=== PATIENT | male | born 1955 | race Caucasian/White ===

== ENCOUNTER 2017-07-27 10:44 | Emergency (ER) | payer BC ==
[2017-07-27 11:09] VITALS: BP 93/65
--- NOTE | 2017-07-27 11:41 | UC ---
Shortness of Breath HPI - HPI Summary HPI Summary: COUGH AND CONGESTION STARTED AROUND [place]. SINCE THEN SYMPTOMS HAVE PROGRESSED AND NOW PT HAS SOB WITH EXERTION AND EXTREME FATIGUE. FEELS WEAK. PT DENIES CP. APPETITE HAS BEEN DECREASED. PT ADMITS TO NOT EATING MUCH RECENTLY BUT IS TRYING TO STAY HYDRATED. 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 PT REPORTS HE HAD AFIB IN THE PAST BUT "NOT FOR YEARS". - History of Current Complaint Chief Complaint: UCRespiratory Stated Complaint: COUGH,CONGESTED Time Seen by Provider: 07/27/17 11:18 Hx Obtained From: Patient, Family/Senior Analyst Programmer - SON Onset/Duration: Gradual Onset, Lasting Days, Still Present Timing: Constant Current Severity: Moderate Dyspnea At: Exertion Aggrevating Factors: Movement Alleviating Factors: Nothing - Allergy/Home Medications Allergies/Adverse Reactions: Allergies Allergy/AdvReac Type Severity Reaction Status Date / Time Tramadol Allergy Severe Unknown Verified 07/27/17 11:03 Reaction Details Acetaminophen Allergy Unknown Unknown Verified 07/27/17 11:03 Reaction Details Propoxyphene Allergy Unknown Unknown Verified 07/27/17 11:03 [From Darvocet-N] Reaction Details Codeine AdvReac Intermediate Abdominal Verified 07/27/17 11:03 Pain all myacins Allergy Unknown Uncoded 07/27/17 11:03 Reaction Details Home Medications: Home Medications Brimonidine Tartrate 07/27/17 [History] PMH/Surg Hx/FS Hx/Imm Hx - Additional Past Medical History Additional PMH: PE/DVT ON COUMADIN Other History Of: Anticoagulant Therapy - Surgical History Surgical History: Yes Surgery Procedure, Year, and Place: 07/2013 MITRAL VALVE REPAIR [place]. 1999 [place] fx [place]; [facility] [place] bilat knee surgery; [facility] [place]. 2005 right elbow surgery, [facility] [place]. 1963 BILATERAL INGUINAL hernia repair - Family History Known Family History: Negative: Cardiac Disease - Social History Alcohol Use: None Substance Use Type: None Substance Use Comment - Amount & Last Used: Haven't had anything to drink in 4 years Smoking Status (MU): Never Smoked Tobacco Have You Smoked in the Last Year: No - Immunization History Most Recent Influenza Vaccination: never Most Recent Tetanus Shot: 2014 Most Recent Pneumonia Vaccination: unknown Review of Systems Constitutional: Fatigue Respiratory: Shortness Of Breath, Cough Cardiovascular: Negative Gastrointestinal: Negative All Other Systems Reviewed And Are Negative: Yes Physical Exam Triage Information Reviewed: Yes Appearance: No Pain Distress, Ill-Appearing - MODERATELY ILL. PALE. MILD SKIN TENTING AND PASTY MUCOUS MEMBRANES Vital Signs: Initial Vital Signs Temp 97.7 F 07/27/17 11:04 Pulse 95 07/27/17 11:04 Resp 16 07/27/17 11:04 BP 93/65 07/27/17 11:04 Pulse Ox 94 07/27/17 11:04 Eyes: Positive: Conjunctiva Clear ENT: Positive: Hearing grossly normal Neck: Positive: Supple, Nontender, No Lymphadenopathy Respiratory Exam: Normal Cardiovascular: Positive: Tachycardia Abdomen Description: Positive: Soft Musculoskeletal: Positive: No Edema Neurological: Positive: Alert Psychological: Positive: Normal Response To Family, Age Appropriate Behavior Skin: Negative: rashes Diagnostics - EKG Cardiac Rate: NL Cardiac Rhythm: AFib: Old - 89 BPM, RBBB, Q WAVES INF LEADS Shortness of Breath Dx - Course Course Of Treatment: TO [facility] [place] BY AMBULANCE - Differential Dx/Diagnosis Provider Diagnoses: AFIB, STERN - Physician Notification/Consults Discussed Patient Care With: Tierra Degroot - TO [facility] [place] [facility] BY AMBULANCE Time Discussed With Above Provider: 11:40 Instructed by Provider To: MD Will See In ED Discharge - Discharge Plan Condition: Stable Disposition: TRANS HIGHER LVL OF CARE FAC Patient Education Materials: A-fib (Atrial Fibrillation) (ED), Dyspnea (ED) Referrals: Michelle Freire MD [Primary Care Provider] -
== END 2017-07-27 11:59 | disposition short-term general hospital (02) ==
LOC: UCEAST 10:44
DX: I48.91 Unspecified atrial fibrillation (principal); R06.00 Dyspnea, unspecified; Z86.711 Personal history of pulmonary embolism; Z86.718 Personal history of other venous thrombosis and embolism; Z79.01 Long term (current) use of anticoagulants
CPT/HCPCS: 93005; 99213; G0463

== ENCOUNTER 2017-07-27 12:10 | Observation (INO) | payer BC ==
[2017-07-27 12:54] LABS: INR 2.32 (0.77-1.02)
[2017-07-27 13:01] LABS: ABS Basophils 0 10^3/ul (0-0.2); ABS Eosinophils 0 10^3/ul (0-0.6); ABS Lymphocytes 0.5 10^3/ul (1.0-4.8); ABS Monocytes 0.8 10^3/ul (0-0.8); ABS Neutrophils 4.8 10^3/ul (1.5-7.7); ABS Nucleated RBC 0 10^3/ul; Eosinophil % 0 % (0-6); Hematocrit 41 % (42-52); Hemoglobin 14.6 g/dl (14.0-18.0); Lymphocyte % 8.4 % (25-47); Mean Corpuscular HGB Conc 35 g/dl (31-36); Mean Corpuscular Hemoglobin 32 pg (27-31); Mean Corpuscular Volume 90 fL (80-94); Mean Platelet Volume 10 um3 (7.4-10.4); Nucleated Red Blood Cells % 0; Platelet Count 86 10^3/ul (150-450); Red Blood Count 4.61 10^6/ul (4.0-5.4); Red Cell Distribution Width 15 % (10.5-15); White Blood Count 6.1 10^3/ul (3.5-10.8)
[2017-07-27] MEDS ORDERED: Oseltamivir CAP* 75 MG PO ONE (13:05)
[2017-07-27 13:37] LABS: EGFR Non-African American 82.1 (>60)
[2017-07-27] MEDS ORDERED: NS 0.9% 1000 ML* 1,000 ML IV ONE (13:57)
[2017-07-27 14:02] LABS: Urine Appearance Cloudy; Urine Blood 2+ (Negative); Urine Color Amber; Urine Ketones Negative (Negative); Urine Protein 1+(30 mg/dL) (Negative); Urine Specific Gravity 1.028 (1.010-1.030); Urine Urobilinogen Negative (Negative)
--- NOTE | 2017-07-27 14:20 | RAD ---
HISTORY: Atrial fibrillation, cough COMPARISONS: None VIEWS: 4: Frontal dual-energy and lateral views of the chest. FINDINGS: CARDIOMEDIASTINAL SILHOUETTE: The cardiomediastinal silhouette is normal. Prosthesis is noted. MITRA: The mitra are normal. PLEURA: The costophrenic angles are sharp. No pleural abnormalities are noted. LUNG PARENCHYMA: There is hyperinflation with flattening of the diaphragm and expansion of the AP diameter of the chest. ABDOMEN: The upper abdomen is clear. There is no subphrenic gas. BONES AND SOFT TISSUES: The patient is status post median sternotomy. OTHER: None. IMPRESSION: NO ACTIVE CARDIOPULMONARY DISEASE.
--- NOTE | 2017-07-27 17:00 | ED ---
Max Barbosa Tecjoon scribed for Justin Middleton MD on 07/27/17 at 1253 . Complex/Multi-Sys Presentation - HPI Summary HPI Summary: This patient is a 61 year old BIBA to [facility] with a chief complaint of general weakness since 8 days ago. Patient states that he has had a chest cold for about a week, with increasing weakness. Patient also exhibits afib, which he states is recent and that he hasnt had afib for several years. Patient was referred from Urgent Care. Symptoms aggravated by nothing. Symptoms alleviated by nothing. Patient additionally reports cough, rhinorrhea, lack of appetite. Patient denies diarrhea, vomiting. Patient states his grandson was dx with bacterial pneumonia during . - History Of Current Complaint Chief Complaint: EDDysrhythmPalp Time Seen by Provider: 07/27/17 12:33 Hx Obtained From: Patient Onset/Duration: Gradual Onset, Lasting Days - 8, Still Present Timing: Constant Severity Currently: Moderate Aggravating Factor(s): nothing Alleviating Factor(s): nothing Associated Signs And Symptoms: Positive: Other - cough, rhinorrhea, lack of appetite. Negative: Vomiting, Diarrhea - Allergies/Home Medications Allergies/Adverse Reactions: Allergies Allergy/AdvReac Type Severity Reaction Status Date / Time Tramadol Allergy Severe Unknown Verified 07/27/17 11:03 Reaction Details Acetaminophen Allergy Unknown Unknown Verified 07/27/17 11:03 Reaction Details Propoxyphene Allergy Unknown Unknown Verified 07/27/17 11:03 [From Darelpidio-N] Reaction Details Codeine AdvReac Intermediate Abdominal Verified 07/27/17 11:03 Pain all myacins Allergy Unknown Uncoded 07/27/17 11:03 Reaction Details Home Medications: Home Medications Digoxin TAB* [Lanoxin TAB*] 0.125 mg PO BID 07/27/17 [History Confirmed 07/27/17 ] Diltiazem CD CAP* [Cardizem CD CAP*] 120 mg PO DAILY 07/27/17 [History Confirmed 07/27/17] PMH/Surg Hx/FS Hx/Imm Hx Previously Healthy: No Endocrine/Hematology History: Reports: Hx Anticoagulant Therapy, Hx Blood Transfusions, 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 Denies: Hx Blood Disorders, Hx Bone Marrow Disease, Hx Diabetes, Hx Systemic Lupus Erythematosus, Hx Sickle Cell Disease, Hx Thyroid Disease, Hx Unexplained Bleeding, Other Endocrine/Hematological Disorders Cardiovascular History: Reports: Hx Deep Vein Thrombosis, Hx Embolism, Hx Syncope - last , "may have been due to A-Fib", Hx Valvular Heart Disease Denies: Hx Aneurysm, Hx Angina, Hx Angioplasty, Hx Auto Implanted Cardiovert Defib, Hx Cardiac Arrest, Hx Cardiomegaly, Hx Congenital Heart Disease, Hx Congestive Heart Failure, Hx Coronary Artery Disease, Hx Hypercholesterolemia, Hx Hypotension, Hx Hypertension, Hx Pacemaker/ICD, Hx Peripheral Vascular Disease, Hx Rheumatic Fever, Other Cardiovascular Problems/Disorders Respiratory History: Reports: Hx Pulmonary Embolism, Other Respiratory Problems/ Disorders - DVT/PE IN 2013 OR 2014 PER PT. Denies: Hx Asthma, Hx Chronic Bronchitis, Hx Chronic Obstructive Pulmonary Disease (COPD), Hx Cystic Fibrosis, Hx Lung Cancer, Hx Pleural Effusion, Hx Pneumonia, Hx Pulmonary Edema, Hx Seasonal Allergies, Hx Sleep Apnea GI History: Denies: Hx Cirrhosis, Hx Crohn's Disease, Hx Diverticulosis, Hx Gall Bladder Disease, Hx Gastroesophageal Reflux Disease, Hx Gastrointestinal Bleed, Hx Hiatal Hernia, Hx Irritable Bowel, Hx Jaundice, Hx Obstructive Bowel, Hx Ileostomy, Hx Pyloric Stenosis, Hx Ulcer, Other GI Disorders History: Denies: Hx Acute Renal Failure, Hx Benign Prostatic Hyperplasia, Hx Dialysis , Hx Kidney Infection, Hx Kidney Stones, Other Problems/Disorders Musculoskeletal History: Reports: Hx Arthritis - toes and fingers, HIPS. KNEES, Hx Back Problems Denies: Hx Bursitis, Hx Congenital Bone Abnormalities, Hx Fibromyalgia, Hx Gout, Hx Orthopedic Injury, Hx Osteoporosis, Hx Scoliosis, Hx Tendonitis, Other Musculoskeletal History Sensory History: Reports: Hx Contacts or Glasses, Hx Hearing Aid, Hx Hearing Problem Denies: Hx Cataracts, Hx Eye Injury, Hx Eye Prosthesis, Hx Glaucoma, Hx Legally Blind, Hx Macular Degeneration, Hx Vision Problem, Hx Deafness, Other Sensory Impairments Opthamlomology History: Reports: Hx Contacts or Glasses Denies: Hx Cataracts, Hx Eye Injury, Hx Eye Prosthesis, Hx Glaucoma, Hx Legally Blind, Hx Macular Degeneration, Hx Vision Problem, Other Sensory Impairments Neurological History: Denies: Hx Dementia, Hx Developmental Delay, Hx Headaches, Hx Migraine, Hx Nerve Disease, Hx Seizures, Hx Spinal Cord Injury, Hx Transient Ischemic Attacks (TIA), Other Neuro Impairments/Disorders Psychiatric History: Reports: Hx Anxiety - HAS PRN MEDS, Hx Depression Denies: Hx Attention Deficit Hyperactivity Disorder, Hx Eating Disorder, Hx Panic Disorder, Hx Post Traumatic Stress Disorder, Hx Inpatient Treatment, Hx Community Mental Health Tx, Hx Schizophrenia, Hx Bipolar Disorder, Hx Suicide Attempt, Hx of Violent Episodes Against Others, Hx Substance Abuse, Other Psychiatric Issues/Disorders - Surgical History Surgery Procedure, Year, and Place: 07/2013 MITRAL VALVE REPAIR [place]. 2000 left wrist fx repair; [facility] [place]. 2005 bilat knee surgery; [facility] [place]. 2005 right elbow surgery, [facility] [place]. 1963 BILATERAL INGUINAL hernia repair Hx Anesthesia Reactions: Yes - YOUNG CHILD, VIOLENTLY ILL Infectious Disease History: No Infectious Disease History: Denies: Hx Clostridium Difficile, Hx Hepatitis, Hx Human Immunodeficiency Virus (HIV), Hx of Known/Suspected MRSA, Hx Shingles, Hx Tuberculosis, Hx Known/ Suspected VRE, Hx Known/Suspected VRSA, History Other Infectious Disease, Traveled Outside the [place] in Last 30 Days - Family History Known Family History: Positive: Cardiac Disease - Social History Occupation: Employed Full-time Alcohol Use: None Hx Substance Use: No Substance Use Type: Reports: None Substance Use Comment - Amount & Last Used: Haven't had anything to drink in 4 years Hx Tobacco Use: No Smoking Status (MU): Never Smoked Tobacco Have You Smoked in the Last Year: No Review of Systems Positive: Other - lack of appetite. Negative: Fever Positive: Nasal Discharge Positive: Cough Negative: Vomiting, Diarrhea Positive: Weakness All Other Systems Reviewed And Are Negative: Yes Physical Exam Triage Information Reviewed: Yes Vital Signs On Initial Exam: Initial Vitals Temp Pulse Resp BP Pulse Ox 99.1 F 100 19 107/79 94 07/27/17 12:17 07/27/17 12:17 07/27/17 12:17 07/27/17 12:17 07/27/17 12:17 Vital Signs Reviewed: Yes Appearance: Positive: Well-Appearing, No Pain Distress Skin: Positive: Warm Head/Face: Positive: Normal Head/Face Inspection Eyes: Positive: EOMI ENT: Positive: Nasal congestion Neck: Positive: Nontender Respiratory/Lung Sounds: Positive: Clear to Auscultation, Breath Sounds Present Cardiovascular: Positive: RRR. Negative: Murmur Abdomen Description: Positive: Nontender Musculoskeletal: Positive: Strength/ROM Intact Neurological: Positive: Sensory/Motor Intact, Alert, Oriented to Person Place, Time, CN Intact II-III Psychiatric: Positive: Normal - [place] Coma Scale Best Eye Response: 4 - Spontaneous Best Motor Response: 6 - Obeys Commands Best Verbal Response: 5 - Oriented Coma Scale Total: 15 Diagnostics - Vital Signs Vital Signs Temp Pulse Resp BP Pulse Ox 07/27/17 12:19 18 107/79 07/27/17 12:17 99.1 F 100 19 107/79 94 - Laboratory Lab Results: Lab Results 07/27/17 07/27/17 07/27/17 Range/Units 11:45 11:45 11:45 WBC 6.1 (3.5-10.8) 10^3/ul RBC 4.61 (4.0-5.4) 10^6/ul Hgb 14.6 (14.0-18.0) g/dl Hct 41 L (42-52) % MCV 90 (80-94) fL MCH 32 H (27-31) pg MCHC 35 (31-36) g/dl RDW 15 (10.5-15) % Plt Count 86 L (150-450) 10^3/ul MPV 10 (7.4-10.4) um3 Neut % (Auto) 78.6 (38-83) % Lymph % (Auto) 8.4 L (25-47) % [place] % (Auto) 12.8 H (1-9) % Eos % (Auto) 0 (0-6) % Baso % (Auto) 0.2 (0-2) % Absolute Neuts (auto) 4.8 (1.5-7.7) 10^3/ul Absolute Lymphs (auto) 0.5 L (1.0-4.8) 10^3/ul Absolute Monos (auto) 0.8 (0-0.8) 10^3/ul Absolute Eos (auto) 0 (0-0.6) 10^3/ul Absolute Basos (auto) 0 (0-0.2) 10^3/ul Absolute Nucleated RBC 0 10^3/ul Nucleated RBC % 0 Hem Pathologist Commnt Pending INR (Anticoag Therapy) (0.77-1.02) Sodium 131 L (133-145) mmol/L Potassium 3.7 (3.5-5.0) mmol/L Chloride 99 L (101-111) mmol/L Carbon Dioxide 24 (22-32) mmol/L Anion Gap 8 (2-11) mmol/L BUN 28 H (6-24) mg/dL Creatinine 0.93 (0.67-1.17) mg/dL Est GFR ( Amer) 105.5 (>60) Est GFR (Non-Af Amer) 82.1 (>60) BUN/Creatinine Ratio 30.1 H (8-20) Glucose 199 H (70-100) mg/dL Lactic Acid (0.5-2.0) mmol/L Calcium 8.6 (8.6-10.3) mg/dL Magnesium 2.0 (1.9-2.7) mg/dL Total Bilirubin 1.70 H (0.2-1.0) mg/dL AST 37 (13-39) U/L ALT 18 (7-52) U/L Alkaline Phosphatase 57 (34-104) U/L Total Creatine Kinase 261 H (10-223) U/L Troponin I 0.01 (<0.04) ng/mL B-Natriuretic Peptide 123 H ( - 100) pg/mL Total Protein 5.8 L (6.4-8.9) g/dL Albumin 3.6 (3.2-5.2) g/dL Globulin 2.2 (2-4) g/dL Albumin/Globulin Ratio 1.6 (1-3) Urine Color Urine Appearance Urine pH (5-9) Ur Specific Volcano (1.010-1.030) Urine Protein (Negative) Urine Ketones (Negative) Urine Blood (Negative) Urine Nitrate (Negative) Urine Bilirubin (Negative) Urine Urobilinogen (Negative) Ur Leukocyte Esterase (Negative) Urine WBC (Auto) (Absent) Urine RBC (Auto) (Absent) Urine Bacteria (Absent) Urine Glucose (Negative) Digoxin 1.0 (0.8-2.0) ng/ml Influenza A (Rapid) (Negative) Influenza B (Rapid) (Negative) 07/27/17 07/27/17 07/27/17 Range/Units 11:45 11:45 12:44 WBC (3.5-10.8) 10^3/ul RBC (4.0-5.4) 10^6/ul Hgb (14.0-18.0) g/dl Hct (42-52) % MCV (80-94) fL MCH (27-31) pg MCHC (31-36) g/dl RDW (10.5-15) % Plt Count (150-450) 10^3/ul MPV (7.4-10.4) um3 Neut % (Auto) (38-83) % Lymph % (Auto) (25-47) % [place] % (Auto) (1-9) % Eos % (Auto) (0-6) % Baso % (Auto) (0-2) % Absolute Neuts (auto) (1.5-7.7) 10^3/ul Absolute Lymphs (auto) (1.0-4.8) 10^3/ul Absolute Monos (auto) (0-0.8) 10^3/ul Absolute Eos (auto) (0-0.6) 10^3/ul Absolute Basos (auto) (0-0.2) 10^3/ul Absolute Nucleated RBC 10^3/ul Nucleated RBC % Hem Pathologist Commnt INR (Anticoag Therapy) 2.32 H (0.77-1.02) Sodium (133-145) mmol/L Potassium (3.5-5.0) mmol/L Chloride (101-111) mmol/L Carbon Dioxide (22-32) mmol/L Anion Gap (2-11) mmol/L BUN (6-24) mg/dL Creatinine (0.67-1.17) mg/dL Est GFR ( Amer) (>60) Est GFR (Non-Af Amer) (>60) BUN/Creatinine Ratio (8-20) Glucose (70-100) mg/dL Lactic Acid 1.6 (0.5-2.0) mmol/L Calcium (8.6-10.3) mg/dL Magnesium (1.9-2.7) mg/dL Total Bilirubin (0.2-1.0) mg/dL AST (13-39) U/L ALT (7-52) U/L Alkaline Phosphatase (34-104) U/L Total Creatine Kinase (10-223) U/L Troponin I (<0.04) ng/mL B-Natriuretic Peptide ( - 100) pg/mL Total Protein (6.4-8.9) g/dL Albumin (3.2-5.2) g/dL Globulin (2-4) g/dL Albumin/Globulin Ratio (1-3) Urine Color Urine Appearance Urine pH (5-9) Ur Specific Volcano (1.010-1.030) Urine Protein (Negative) Urine Ketones (Negative) Urine Blood (Negative) Urine Nitrate (Negative) Urine Bilirubin (Negative) Urine Urobilinogen (Negative) Ur Leukocyte Esterase (Negative) Urine WBC (Auto) (Absent) Urine RBC (Auto) (Absent) Urine Bacteria (Absent) Urine Glucose (Negative) Digoxin (0.8-2.0) ng/ml Influenza A (Rapid) Positive H (Negative) Influenza B (Rapid) Negative (Negative) 07/27/17 Range/Units 13:30 WBC (3.5-10.8) 10^3/ul RBC (4.0-5.4) 10^6/ul Hgb (14.0-18.0) g/dl Hct (42-52) % MCV (80-94) fL MCH (27-31) pg MCHC (31-36) g/dl RDW (10.5-15) % Plt Count (150-450) 10^3/ul MPV (7.4-10.4) um3 Neut % (Auto) (38-83) % Lymph % (Auto) (25-47) % [place] % (Auto) (1-9) % Eos % (Auto) (0-6) % Baso % (Auto) (0-2) % Absolute Neuts (auto) (1.5-7.7) 10^3/ul Absolute Lymphs (auto) (1.0-4.8) 10^3/ul Absolute Monos (auto) (0-0.8) 10^3/ul Absolute Eos (auto) (0-0.6) 10^3/ul Absolute Basos (auto) (0-0.2) 10^3/ul Absolute Nucleated RBC 10^3/ul Nucleated RBC % Hem Pathologist Commnt INR (Anticoag Therapy) (0.77-1.02) Sodium (133-145) mmol/L Potassium (3.5-5.0) mmol/L Chloride (101-111) mmol/L Carbon Dioxide (22-32) mmol/L Anion Gap (2-11) mmol/L BUN (6-24) mg/dL Creatinine (0.67-1.17) mg/dL Est GFR ( Amer) (>60) Est GFR (Non-Af Amer) (>60) BUN/Creatinine Ratio (8-20) Glucose (70-100) mg/dL Lactic Acid (0.5-2.0) mmol/L Calcium (8.6-10.3) mg/dL Magnesium (1.9-2.7) mg/dL Total Bilirubin (0.2-1.0) mg/dL AST (13-39) U/L ALT (7-52) U/L Alkaline Phosphatase (34-104) U/L Total Creatine Kinase (10-223) U/L Troponin I (<0.04) ng/mL B-Natriuretic Peptide ( - 100) pg/mL Total Protein (6.4-8.9) g/dL Albumin (3.2-5.2) g/dL Globulin (2-4) g/dL Albumin/Globulin Ratio (1-3) Urine Color Joan Urine Appearance Cloudy Urine pH 5.0 (5-9) Ur Specific [place] 1.028 (1.010-1.030) Urine Protein 1+(30 mg/dl) H (Negative) Urine Ketones Negative (Negative) Urine Blood 2+ H (Negative) Urine Nitrate Negative (Negative) Urine Bilirubin Negative (Negative) Urine Urobilinogen Negative (Negative) Ur Leukocyte Esterase Negative (Negative) Urine WBC (Auto) Trace(0-5/hpf) (Absent) Urine RBC (Auto) 2+(6-10/hpf) H (Absent) Urine Bacteria Absent (Absent) Urine Glucose Negative (Negative) Digoxin (0.8-2.0) ng/ml Influenza A (Rapid) (Negative) Influenza B (Rapid) (Negative) Result Diagrams: 07/27/17 11:45 07/27/17 11:45 Lab Statement: Any lab studies that have been ordered have been reviewed, and results considered in the medical decision making process. - Radiology CXR Xray Interpretation: No Acute Changes - IMPRESSION: NO ACTIVE CARDIOPULMONARY DISEASE. ED physician has reviewed this radiology report. Radiology Interpretation Completed By: Radiologist - EKG 1219 Cardiac Rate: NL EKG Rhythm: Atrial Fibrillation - vent rate 97 BPM EKG Interpretation: A fib with vent rate 97 BPM, RBBB. No STEMI. 1504 Cardiac Rate: NL EKG Rhythm: Atrial Fibrillation - Vent rate 89 BPM EKG Interpretation: A fib with vent rate 89 BPM, RBBB. No STEMI. Complex Multi-Symp Course/Dx Course Of Treatment: This patient is a 61 year old BIBA to [facility] with a chief complaint of general weakness since 8 days ago. Patient states that he has had a chest cold for about a week, with increasing weakness. Patient also exhibits afib, which he states is recent and that he hasnt had afib for several years. Patient was referred from Urgent Care. Symptoms aggravated by nothing. Symptoms alleviated by nothing. Patient additionally reports cough, rhinorrhea, lack of appetite. Patient denies diarrhea, vomiting. Patient states his grandson was dx with bacterial pneumonia during . An EKG, taken 1219, reveals A fib with vent rate 97 BPM, RBBB. No STEMI. An EKG, taken 1504, reveals A fib with vent rate 89 BPM, RBBB. No STEMI. CXR reveals, per radiologist, IMPRESSION: NO ACTIVE CARDIOPULMONARY DISEASE. ED physician has reviewed this radiology report. Bloodwork Obtained. Urinalysis Obtained. In the ED course the patient was given Tamiflu. 61 yr old male with influenza A, in Afib with a history of such and therpeutic on coumadin, also has some dehydration with elevation of BUN. Have discussed with hospitalist and consult cardiology. The patient refuses to take the Tamiflu. He states he does not want it and does not feel it will help him. He preferes just symptomatic treatment. Dr Scott recommends OBV admission with cardioversion tomorrow if he does not spontaneously convert. - Diagnoses Provider Diagnoses: Influenza A, Dehydration, Atrial fibrillation Discharge - Discharge Plan Condition: Good Disposition: ADMITTED TO [facility] Referrals: Konrad Scott MD [Primary Care Provider] - The documentation as recorded by the Max vieira Tecjoon accurately reflects the service I personally performed and the decisions made by me, Justin Middleton MD.
[2017-07-27] MEDS ORDERED: Acetaminophen TAB* 325 MG PO PRN (17:13)
[2017-07-27] MEDS: NS 0.9% 1000 ML* 1,000 ML IV SCH (20:46)
[2017-07-27] MEDS: Digoxin TAB* 0.125 MG PO SCH (20:50)
[2017-07-27] MEDS ORDERED: Diltiazem CD CAP* 120 MG PO SCH (21:00)
--- NOTE | 2017-07-27 21:19 | HP ---
CC: Dr. Freire; Dr. Scott * HISTORY AND PHYSICAL: DATE OF ADMISSION: 07/27/17 PRIMARY CARE PROVIDER: Dr. Freire. SPACE CONTROLLER: Dr. Scott. CHIEF COMPLAINT: Fever, cough, not feeling well. HISTORY OF PRESENT ILLNESS: Sudarshan Childers is a 61-year-old male who has a history of atrial fibrillation, which as the patient stated was paroxysmal, but as per his classification and treatment director's note is persistent. The patient stated that he had been having problems with not feeling well, poor appetite, intermittent fevers and cough as well as body aches for the past 4 days. He has not been eating well and he stated that he could have missed some of the doses of his medications. The patient was noted to have serology positive for influenza A. He also is in atrial fibrillation with heart rate below 100. The patient was also stated that he had not been in atrial fibrillation for "years now." Once again, he was in his atrial fibrillation in June of 2017 when seen by his primary classification and treatment director, Dr. Scott. The patient is going to be placed in overnight observation with the diagnosis of influenza. PAST MEDICAL HISTORY: 1. History of persistent atrial fibrillation. 2. History of sensory neuropathy. 3. History of DVT. 4. History of rheumatic disease of tricuspid valve. 5. History of mitral valve regurgitation, status post repair at [facility] in July of 2013. The patient had a Maze procedure during the mitral valve repair because of his atrial fibrillation. 6. History of attended cardioversion x3 and unsuccessful. 7. Mildly reduced EF of 45% to 50%. 8. History of cardiac catheterization that was "normal" in 2013. 9. History of mild thrombocytopenia. ALLERGIES: Include TRAMADOL, ACETAMINOPHEN, DARVOCET, CODEINE, and ERYTHROMYCINS. The patient stated that he cannot take acetaminophen because " Dr. Scott told me not to." He also stated that he was told not to take ibuprofen due to being on Coumadin. CURRENT MEDICATIONS: Includes: 1. Coumadin 5 mg daily. 2. Digoxin 0.125 mg b.i.d. 3. Brimonidine eye drops 2 drops both eyes at bedtime. 4. Cardizem CD 120 mg nightly. FAMILY HISTORY: Positive for father with heart disease and sister with PE. SOCIAL HISTORY: The patient denies tobacco, alcohol, or drug use. His son, Gerson Childers is his healthcare proxy. He is currently single, lives by himself. 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 REVIEW OF SYSTEMS: Please see history of present illness. The patient stated that "everything hurts." He has no appetite, but denies any nausea, vomiting, abdominal pain, or diarrhea. He denies any chest pain or shortness of breath. He states that he had been coughing and the cough had been nonproductive. His highest fever was 102 degrees and it was 2 days ago. All the remaining 12 systems were reviewed with the patient and were otherwise negative. PHYSICAL EXAMINATION GENERAL: The patient is a very pleasant 61-year-old male, who is in no acute distress. Alert, awake, and oriented x3. VITAL SIGNS: Blood pressure of 105/58, heart rate of 92 and irregularly irregular, respiratory rate 16, oxygen saturation 94% on room air, temperature of 99.8. HEENT: Head: Atraumatic and normocephalic. Eyes: Pupils are equal and reactive to light and accommodation. Oropharynx clear. Mucosa moist. NECK: Supple. No JVD. No bruits bilaterally. RESPIRATORY: Clear to auscultation bilaterally. CARDIOVASCULAR: Irregularly irregular rhythm. No murmur. ABDOMEN: Soft, nontender. Bowel sounds present in all 4 quadrants. EXTREMITIES: There is no edema. Pulses are +2 bilaterally. There is no clubbing or cyanosis. SKIN: On evaluation of the skin, no ecchymotic areas or rashes noted. NEURO EVALUATION: Speech clear. Cranial nerves II through XII grossly intact. Motor strength is 5/5 bilaterally. PSYCHIATRIC EVALUATION: Oriented x3 with no evidence of anxiety or depression. DIAGNOSTIC STUDIES/LAB DATA: White blood cell count of 6.1, hemoglobin of 14.6 , hematocrit of 41, and platelets of 86. Sodium of 131, potassium 3.7, chloride 99, carbon dioxide 24, BUN 28, creatinine 0.93. Liver function tests were unremarkable. Bilirubin 1.7. Total CPK mildly elevated at 261, but troponin was 0.01. Brain natriuretic peptide was 123. Digoxin level was 1.0. Urinalysis was positive for trace protein and trace blood and +2 rbc's. Serology was positive for influenza A. The patient's portable chest x-ray, impression: "No active cardiopulmonary disease." The patient's EKG show an atrial fibrillation with 189 beats per minute with right bundle-branch block. ASSESSMENT AND PLAN: 1. Sudarshan Childers is a 61-year-old male with history of persistent atrial fibrillation, of which he was not aware of. The patient stated that he thought that he had paroxysmal atrial fibrillation. He comes in with symptoms of flu, having influenza positive serology. Interestingly enough, the patient is not interested in Tamiflu treatment. He looked it up on the internet and stated that there are so many side effects and it shortens the duration of flu by one day and he decided that he is not going to take it. He is going to be placed on overnight observation and placed on intravenous fluids. Unfortunately, he also is refusing to take ibuprofen and Tylenol for aches and pains and fevers that he may experience due to flu. At this point, treatment of this patient is very limited by his own trace of therapy. 2. In regards to the patient's persistent atrial fibrillation. His digoxin level was within acceptable range and he is going to be continued on digoxin as well as Cardizem. He is currently reasonably rate controlled and no further action is needed. 3. In regards to the patient's anticoagulation with Coumadin, his INR is therapeutic at 2.3. He is going to be continued on the same Coumadin dose as outpatient. 4. For DVT prophylaxis, the patient is going to be continued on Coumadin as mentioned above. 5. Code status. The patient is considered as full. His surrogate is his son as mentioned above. TIME SPENT: Approximately 62 minutes was spent on admission of this patient, more than half that time was spent [id number] with the patient during the interview and physical exam. [id number]/[facility] #: [id number] [place]
[2017-07-28] MEDS: NS 0.9% 1000 ML* 1,000 ML IV SCH (05:03)
[2017-07-28 08:23] VITALS: BP 107/64
[2017-07-28] MEDS: Digoxin TAB* 0.125 MG PO SCH (08:50)
[2017-07-28] MEDS ORDERED: Diltiazem CD CAP* 120 MG PO SCH (09:00)
[2017-07-28] MEDS ORDERED: Warfarin TAB(*) 5 MG PO SCH (17:00)
--- NOTE | 2017-07-29 01:50 | DS ---
CC: Dr. Scott * DISCHARGE SUMMARY: DATE OF ADMISSION: 07/27/17 DATE OF DISCHARGE: 07/28/17 DISCHARGE DIAGNOSES: 1. Influenza. 2. Systemic inflammatory response syndrome. SECONDARY DIAGNOSES: 1. History of persistent atrial fibrillation. 2. History of sensory neuropathy. 3. History of deep venous thrombosis. MEDICATIONS ON DISCHARGE: Unchanged from admission include: 1. Coumadin 5 mg daily. 2. Digoxin 0.125 mg b.i.d. 3. Brimonidine eyedrops 2 drops, both eyes at bedtime. 4. Cardizem CD 120 mg nightly. HOSPITALIZATION COURSE: Sudarshan Childers is a 61-year-old male with history of persistent atrial fibrillation who presented to the hospital complaining of cough and fevers and poor appetite. He was diagnosed with influenza A and placed on overnight observation. Unfortunately, the patient refused to be treated with Tamiflu and he stated that he is allergic to ACETAMINOPHEN and his doctor told him not to take ibuprofen. Due to that, supportive treatment during his observation was very limited and basically to IV fluids. The patient was noted to be in atrial fibrillation which as per Dr. Scott's note from the end of 2016 that the patient is in persistent atrial fibrillation which the patient was not aware of. He stated that he used to be in paroxysmal atrial fibrillation and he thought that he was in sinus rhythm. The patient was reeducated about this that he appears to be in atrial fibrillation that is now rate controlled and persistent. He was therapeutic on his Coumadin on the day of admission and he is going to be discharged home with recommendation to follow up with his primary care provider and Dr. Scott. PHYSICAL EXAMINATION: At discharge is unchanged from admission. [id number]/[facility] #: [id number] [facility]ITALWu
== END 2017-07-28 11:15 | disposition home or self-care (01) ==
LOC: ED 12:10 → MED 17:11
PROVIDERS: ADMIT Internal Medicine; ATTEND Internal Medicine
DX: J11.1 Influenza due to unidentified influenza virus with other respiratory manifestations (principal); R65.10 Systemic inflammatory response syndrome (SIRS) of non-infectious origin without acute organ dysfunction; I48.91 Unspecified atrial fibrillation; Z79.01 Long term (current) use of anticoagulants; Z86.718 Personal history of other venous thrombosis and embolism; G62.9 Polyneuropathy, unspecified; Z79.899 Other long term (current) drug therapy; Z88.8 Allergy status to other drugs, medicaments and biological substances; I09.1 Rheumatic diseases of endocardium, valve unspecified; I34.0 Nonrheumatic mitral (valve) insufficiency; Z98.62 Peripheral vascular angioplasty status; I45.10 Unspecified right bundle-branch block
CPT/HCPCS: 36415; 71046; 80053; 80162; 81003; 81015; 82550; 83605; 83735; 83880; 84484; 85025; 85060; 85610; 87086; 87502; 93005; 96360; 96361; 99283; A9270-GY; G0378

== ENCOUNTER 2017-07-30 19:14 | Emergency (ER) | payer BC ==
[2017-07-30 19:29] VITALS: BP 98/64
[2017-07-30] MEDS ORDERED: Amoxicillin/Clavulanate TAB* 875 MG PO ONE (20:25)
--- NOTE | 2017-07-30 20:26 | UC ---
Respiratory Complaint HPI - History of Current Complaint Chief Complaint: UCRespiratory Stated Complaint: COUGH Time Seen by Provider: 07/30/17 19:51 - Allergies/Home Medications Allergies/Adverse Reactions: Allergies Allergy/AdvReac Type Severity Reaction Status Date / Time Tramadol Allergy Severe Unknown Verified 07/30/17 19:30 Reaction Details Acetaminophen Allergy Unknown Unknown Verified 07/30/17 19:30 Reaction Details Propoxyphene Allergy Unknown Unknown Verified 07/30/17 19:30 [From [facility]ce[facility]ion-N] Reaction Details Codeine AdvReac Intermediate Abdominal Verified 07/30/17 19:30 Pain all myacins Allergy Unknown Uncoded 07/27/17 11:03 Reaction Details PMH/Surg Hx/FS Hx/Imm Hx Previously Healthy: Yes Cardiovascular History: Atrial Fibrillation Other History Of: Anticoagulant Therapy - Surgical History Surgical History: Yes Surgery Procedure, Year, and Place: 07/2013 MITRAL VALVE REPAIR [place]. 2000 left wrist fx repair; [facility] [place]. 2004 bilat knee surgery; [facility] [place]. 2004 right elbow surgery, [facility] [place]. 1963 BILATERAL INGUINAL hernia repair - Family History Known Family History: Positive: Cardiac Disease - Social History Alcohol Use: None Substance Use Type: None Substance Use Comment - Amount & Last Used: Haven't had anything to drink in 4 years Smoking Status (MU): Never Smoked Tobacco Have You Smoked in the Last Year: No - Immunization History Most Recent Influenza Vaccination: never Most Recent Tetanus Shot: 2013 Most Recent Pneumonia Vaccination: unknown Review of Systems Constitutional: Fever Eyes: Negative ENT: Ear Ache, Sinus Congestion, Sinus Pain/Tenderness Respiratory: Shortness Of Breath, Cough Cardiovascular: Negative Gastrointestinal: Negative All Other Systems Reviewed And Are Negative: Yes Physical Exam Triage Information Reviewed: Yes Appearance: Ill-Appearing Vital Signs: Initial Vital Signs Temp 99.6 F 07/30/17 19:20 Pulse 101 07/30/17 19:20 Resp 18 07/30/17 19:20 BP 98/64 07/30/17 19:20 Pulse Ox 96 07/30/17 19:20 Vital Signs Reviewed: Yes Eyes: Positive: Conjunctiva Clear ENT: Positive: Pharynx normal, TMs normal, Sinus tenderness - left maxillary and frontal PNST Neck: Positive: Supple, Nontender, No Lymphadenopathy Respiratory: Positive: Lungs clear, Normal breath sounds, No respiratory distress, No accessory muscle use Cardiovascular: Positive: No Murmur, Pulses Normal - irregular rhythm Abdominal Exam: Normal Musculoskeletal: Positive: No Edema UC Diagnostic Evaluation - Laboratory O2 Sat by Pulse Oximetry: 96 Respiratory Course/Dx - Course Course Of Treatment: initiate antibiotics and complete course of treatment, intake fluids to promote hydration, return to ER if symptoms do not improve after third dose of antibiotics. f/u PCP and cardiology in a week - Differential Dx/Diagnosis Provider Diagnoses: Acute sinusitis. Atrial fibrillation Discharge - Discharge Plan Condition: Stable Disposition: HOME Patient Education Materials: Sinusitis (ED), A-fib (Atrial Fibrillation) (ED) Referrals: Michelle Freire MD [Primary Care Provider] -
== END 2017-07-30 20:40 | disposition home or self-care (01) ==
LOC: UCEAST 19:14
DX: J01.90 Acute sinusitis, unspecified (principal); I48.91 Unspecified atrial fibrillation; Z88.5 Allergy status to narcotic agent; Z88.6 Allergy status to analgesic agent; Z91.09 Other allergy status, other than to drugs and biological substances; Z79.01 Long term (current) use of anticoagulants
CPT/HCPCS: 99212; A9270-GY; G0463